=== PATIENT | female | born 1980 | race Caucasian/White ===

== ENCOUNTER 2024-02-18 14:49 | Outpatient (AMB) | payer OTHER, SELFPAY ==
--- NOTE | 2024-02-18 15:16 | A.OFFPC_ITS ---
Vital Signs 02/18/24 15:23 Height 5 ft 6.54 in Weight 157 lb 6 oz BMI 25.0 BP 126/88 Blood Pressure Location Lt brachial Position Sitting Respiration 12 Pulse 91 Pulse Source Pulse Oximeter Temp 98.9 F Temp Source Oral Pulse Oximetry (%) 97 Oxygen Delivery Method Room Air Intake Visit Reasons: NPV issue with blood pressure. Allergies fluoxetine [From Prozac] Allergy (Unknown, Verified 02/18/24 15:21) Hives Tobacco use date assessed: 02/18/24 Dental Screening Dental Screen Date: 02/18/24 Did you have a dental visit in the last 12 months?: Yes Did you have a dental problem in the last 6 months where you did not have access to dental care?: No Was dental information given to patient?: Patient has dentist HPI HPI Comments History of Present Illness Details This is a 43-year-old female with a past medical history of abnormal uterine bleeding, anxiety, diastasis recti, NEHAL 1 and hypertension presenting to transfer from my practice at [facility]. She was started on Inderal LA 60 mg shortly before I left the last practice for physiologic anxiety symptoms and hypertension. Her blood pressure and symptoms improved on the medication. She has occasional lightheadedness with it. During the past month she reports increased anxiety. She attributes this to multiple factors. She has a co-worker at work who is difficult. She has a 5-year-old and an 8-year-old. They are boys. Her 5-year-old is high energy and has tantrums. She knows this is normal, but it is still difficult to deal with at home. Her is also drinking alcohol again, and he struggles with depression. He was in treatment. He was taking medication and seeing a therapist, but he stopped. She says he has a hard time following through with things. She can not always remind him because she gets frustrated, and she has a lot of things to do for her family, and he should be able to have the initiative to do things himself. She knows he has the potential to be a very good partner, but she also knows that she may have to have a more serious conversation with him if things do not change. She knows that she deserves a healthy marriage, and a good partner, and her children deserve a happy father. She is seeing a therapist. She goes every 3 weeks. She took Prozac in the past which caused hives. Her cvir tech is treating her abnormal uterine bleeding. She is currently on medroxyprogesterone 10 mg daily which has been tapered down from a higher dosage. TSH was normal. ROS: Constitutional: No unexplained weight loss, fever, chills or night sweats. Endocrine: No cold or heat intolerance. No polyuria or polydipsia. Psychiatric: No SI/HI. Constitutional: Alert, in no distress. Respiratory: Clear to auscultation. Cardiovascular: S1 S2 regular. No murmurs. Psychiatric: Normal mood and affect [facility] Medical History (Updated 02/18/24 @ 16:20 by LIZZETH Harrell) Vulvodynia Menstrual headache Mass of right foot Hypertension History of pre-eclampsia Heavy menses Headache Hair loss Diastasis recti Anxiety Abnormal uterine bleeding Surgical History (Updated 02/18/24 @ 15:34 by Aide Sorensen CMA) H/O wisdom tooth extraction H/O section Social History Housing: House Patient Tobacco Use Status: Never used Tobacco e-Cigarette/Vaping Use: Never Used Second Hand Smoke Exposure: No service: No Current occupational status: employed 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 1. Little interest or pleasure in doing things: several days 2. Feeling down, depressed, or hopeless: several days 3. Trouble falling or staying asleep, or sleeping too much: several days 4. Feeling tired or having little energy: more than half the days 5. Poor appetite or overeating: not at all 6. Feeling bad about yourself - or that you are a failure or have let yourself or your family down: not at all 7. Trouble concentrating on things, such as reading the newspaper or watching television: not at all 8. Moving or speaking so slowly that other people could have noticed. Or the opposite - being so fidgety or restless that you have been moving around a lot more than usual: not at all 9. Thoughts that you would be better off or of hurting yourself in some way: not at all Total score: 5 Depression Screening Interpretation: Positive Depression Screening Follow-up: In treatment Depression Screening Done: Yes 07365 - PHQ-9 Billing: Yes Source: Developed by Drs. Mainor Ferraro, Ciara Stover, Thomas Morin and colleagues, with an educational ermelinda from [employer]. Thrive Questionnaire Date Thrive assessed: 02/18/24 I am a: Patient What is your living situation today?: I have a steady place to live Within the past 12 months, did the food you bought not last and you didn't have the money to get more?: Never true Within the past 12 months, did you worry whether your food would run out before you got money to buy more?: Never true Do you have trouble paying for medicines?: No Do you have trouble getting transportation to medical appointments?: No Do you have trouble paying your heating and electricity bill?: No Do you have trouble taking care of your child, family member or friend?: No Do you have trouble with day-to-day activities such as bathing, preparing meals, shopping, managing finances, etc.?: No Are you currently unemployed and looking for a job?: No Are you interested in more education?: No Please select the resources that you would like help with: None Currently or been in a relationship where the following occur: No concerns reported THRIVE Score: 0 AUDIT C Alcohol Use Questionnaire (AUDIT-C) 1. How often do you have a drink containing alcohol?: Monthly or less 2. How many drinks containing alcohol do you have on a typical day when you are drinking?: 1 or 2 3. How often do you have six or more drinks on one occasion?: Never Total Score: 1 RICA-7 AMB Questionnaire RICA-7 Date RICA - 7 assessed: 02/18/24 Feeling nervous, anxious, or on edge: 0 = Not at all Not being able to stop or control worryin = Not at all Worrying too much about different things: 0 = Not at all Trouble relaxin = Not at all Being so restless that it is hard to sit still: 0 = Not at all Becoming easily annoyed or irritable: 0 = Not at all Feeling afraid as if something awful might happen: 0 = Not at all Total RICA-7 score (0-4 normal; 5-9 mild; 10-14 moderate; 15-21 severe): 0 Source: Developed by Drs. Mainor Ferraro, Ciara Stover, Thomas Morin and colleagues, with an educational ermelinda from [employer]. RICA-7 Assessment Billing RICA-7 Assessment Tool: RICA-7 Assessment 37882 Physical exam (Primary Care) Vital Signs: Last Vital Signs Temp 98.9 F 02/18/24 15:23 Pulse 91 02/18/24 15:23 Resp 12 02/18/24 15:23 BP 126/88 02/18/24 15:23 Pulse Ox 97 02/18/24 15:23 Oxygen Delivery Method Room Air 02/18/24 15:23 BMI result Body Mass Index 25.0 Tobacco/Smoking Status: Tobacco use Status Tobacco use date assessed 02/18/24 02/18/24 15:28 Patient Tobacco Use Status Never used Tobacco 02/18/24 15:28 e-Cigarette/Vaping Use Never Used 02/18/24 15:28 PHQ-9: PHQ-9 Score PHQ-9: Total score 5 02/18/24 16:03 Depression Screening Interpretation: Positive Depression Screening Follow-up: In treatment Thrive Assessment: Date of Thrive Assessment Date Thrive assessed 02/18/24 02/18/24 15:28 Currently or been in a relationship where the following occur: No concerns reported Assessment and Plan Assessment & Plan (1) Anxiety: Code(s): F41.9 - Anxiety disorder, unspecified Plan: Patient will continue therapy. Prefers daily medication to treat anxiety. She had hives on an SSRI. We will try buspirone 5 mg twice daily. Dose may need to be titrated. Side effects and black box warning reviewed. (2) Hypertension: Code(s): I10 - Essential (primary) hypertension Qualifiers: Hypertension type: primary hypertension Qualified Code(s): I10 - Essential (primary) hypertension Plan: Diastolic blood pressure mildly elevated today. Anxiety and stress likely contributing to this. See below. Continue Inderal ER 60 mg daily for now. Recheck at follow up in a month. Low-sodium diet and avoidance of caffeine recommended. Medications: New buspirone 5 mg PO BID 60 tabs 0RF 30 days Coding Level of Care Code Est Pt Level 4 (28282) Complex EM visit Add On G2211 Diagnoses Anxiety F41.9 Primary hypertension I10 Hypertension type: primary hypertension Additional Codes RICA-7 Assessment Billing - RICA-7 Assessment Tool: RICA-7 Assessment 43908 ([id number])
[2024-02-18 15:23] VITALS: BP 126/88; PULSE 91; RESP 12; TEMP 37.2; O2SAT 97; BMI 25.0
== END 2024-02-18 16:16 | disposition home or self-care (01) ==
PROVIDERS: Visit Provider Physician Assistant Medical
DX: I10 Essential (primary) hypertension (principal); F41.9 Anxiety disorder, unspecified
CPT/HCPCS: 99214

== ENCOUNTER 2024-03-16 15:25 | Outpatient (AMB) | payer OTHER, SELFPAY ==
--- NOTE | 2024-03-16 15:35 | MHC.PC.OV ---
Vital Signs 03/16/24 15:42 03/16/24 16:19 Height 5 ft 8 in Weight 160 lb 2 oz BMI 24.3 BP 110/90 H 114/85 Blood Pressure Location Lt brachial Position Sitting Respiration 16 Pulse 84 Pulse Source Palpation Temp 98.5 F Temp Source Oral Intake Visit Reasons: Med Review Intake Note: b/p recheck Is last menstrual period known: No (per patient she takes medication to stop menstrual) Post menopausal: No Patient : No Allergies fluoxetine [From Prozac] Allergy (Unknown, Verified 03/16/24 15:44) Hives Tobacco use date assessed: 03/16/24 Dental Screening Dental Screen Date: 03/16/24 Did you have a dental visit in the last 12 months?: Yes Did you have a dental problem in the last 6 months where you did not have access to dental care?: No Was dental information given to patient?: Patient has dentist HPI HPI Comments History of Present Illness Details This is a 43-year-old female with a past medical history of abnormal uterine bleeding, anxiety, diastasis recti, NEHAL 1 and hypertension presenting for follow up. She was started on Inderal LA 60 mg shortly before I left the last practice for physiologic anxiety symptoms and hypertension. Her blood pressure and symptoms improved on the medication. She has occasional lightheadedness with it. At her initial visit here she reported increased anxiety: She attributes this to multiple factors. She has a co-worker at work who is difficult. She has a 5-year-old and an 8-year-old. They are boys. Her 5-year-old is high energy and has tantrums. She knows this is normal, but it is still difficult to deal with at home. Her is also drinking alcohol again, and he struggles with depression. He was in treatment. He was taking medication and seeing a therapist, but he stopped. She says he has a hard time following through with things. She can not always remind him because she gets frustrated, and she has a lot of things to do for her family, and he should be able to have the initiative to do things himself. She knows he has the potential to be a very good partner, but she also knows that she may have to have a more serious conversation with him if things do not change. She knows that she deserves a healthy marriage, and a good partner, and her children deserve a happy father. She is seeing a therapist. She goes every 3 weeks. She took Prozac in the past which caused hives. Patient started buspirone 5 mg twice daily. It is helping a little, and she does not have side effects. She is interested in increasing the dose. Since her last visit her started seeing a therapist. She is happy about this, but she is frustrated she has not seen improvement yet although she knows it is too early. Her diastolic blood pressure is mildly elevated today, but she is emotionally charged. Her son has been sick for a week. He has been at the doctor and urgent care. Her dog also has a medical issue, and the vet bill was 1200 dollars. ROS: Constitutional: No unexplained weight loss, fever, chills or night sweats. Endocrine: No cold or heat intolerance. No polyuria or polydipsia. Psychiatric: No SI/HI. Constitutional: Alert, in no distress. 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 Mainor Ferraro, Ciara Stover, Thomas Morin and colleagues, with an educational ermelinda from [employer]. Physical exam (Primary Care) BMI result Body Mass Index 24.3 Tobacco/Smoking Status: Tobacco use Status Tobacco use date assessed 02/18/24 03/16/24 15:41 Patient Tobacco Use Status Never used Tobacco 03/16/24 15:41 e-Cigarette/Vaping Use Never Used 03/16/24 15:41 Thrive Assessment: Date of Thrive Assessment Date Thrive assessed 02/18/24 03/16/24 15:41 Assessment and Plan Assessment & Plan (1) Anxiety: Code(s): F41.9 - Anxiety disorder, unspecified Plan: Patient will continue therapy. Increase buspirone to 7.5 mg twice daily. Dose may need to be titrated further. Side effects and black box warning reviewed. (2) Hypertension: Code(s): I10 - Essential (primary) hypertension Qualifiers: Hypertension type: primary hypertension Qualified Code(s): I10 - Essential (primary) hypertension Plan: Diastolic blood pressure mildly elevated today. Anxiety and stress likely contributing to this. Continue Inderal ER 60 mg daily for now. I provided her with a prescription for a blood pressure cuff. Low-sodium diet and avoidance of caffeine recommended. Plan Follow up in 4-6 weeks for medication check. Medications: New miscellaneous medical supply (Blood Pressure Cuff) As directed 1 ea 0RF buspirone 7.5 mg PO BID 60 tabs 1RF miscellaneous medical supply (Blood Pressure Cuff) As directed 1 ea 0RF Discontinued buspirone Discontinued Reason: Doctor's Order 5 mg PO BID 30 days 60 tabs 0RF Coding Level of Care Code Est Pt Level 4 (48252) Complex EM visit Add On G2211 Diagnoses Anxiety F41.9 Primary hypertension I10 Hypertension type: primary hypertension
[2024-03-16 15:42] VITALS: BP 110/90; PULSE 84; RESP 16; TEMP 36.9; BMI 24.3
[2024-03-16 16:19] VITALS: BP 114/85
== END 2024-03-16 16:29 | disposition home or self-care (01) ==
PROVIDERS: PCP Physician Assistant Medical; Visit Provider Physician Assistant Medical
DX: I10 Essential (primary) hypertension (principal); F41.9 Anxiety disorder, unspecified
CPT/HCPCS: 99214

== ENCOUNTER 2024-04-30 10:03 | Outpatient (AMB) | payer OTHER, SELFPAY ==
--- NOTE | 2024-04-30 09:58 | MHC.PC.OV ---
Intake Visit Reasons: anxiety check, -[phone] Intake Note: Patient is checking in regarding anxiety and expresses concern for her medication that she would like to discuss with her provider. 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 She shared further updates today. Her was hospitalized for 2 days for acute alcohol withdrawal. Patient says that his eyes are yellow. He has lost weight. He has told her that he can never have a drink again, but she has difficulty trusting this because of his previous lies. She is still seeing her therapist. She continues to tell me that she knows she deserves a healthy marriage, a good partner and for her children to have a happy father. She is having some difficulty sleeping due to racing thoughts at night. She took Prozac in the past which caused hives. She is currently on buspirone 7.5 mg twice daily, and she is interested in a dose increase. She is not interested in any controlled substances like Ativan as needed at this time. The only side effect on buspirone is occasional lightheadedness after she takes it. Her 5-year-old started kindergarten. He is doing okay with this. Sadly, her dog also a few weeks ago. ROS: Constitutional: No unexplained weight loss, fever, chills or night sweats. Psychiatric: No SI/HI. 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 Mainor Ferraro, Ciara Stover, Thomas Morin and colleagues, with an educational ermelinda from [employer]. Physical exam (Primary Care) Tobacco/Smoking Status: Tobacco use Status Tobacco use date assessed 03/16/24 04/30/24 10:01 Patient Tobacco Use Status Never used Tobacco 04/30/24 10:01 e-Cigarette/Vaping Use Never Used 04/30/24 10:01 Thrive Assessment: Date of Thrive Assessment Date Thrive assessed 02/18/24 04/30/24 10:01 Telehealth Telehealth Telehealth Platform: Telephone Location of provider rendering services: practice address Location of patient: other (Patient's work address) Patient Identification confirmed using: Name, : Yes Telehealth method: voice only Patient verbally consented to treatment: Yes Patient verbally consented to billing insurance company: Yes Patient informed of any privacy concerns related to visit: Yes Minutes spent on Phone/Video with Pt.: 13 Assessment and Plan Assessment & Plan (1) Anxiety: Code(s): F41.9 - Anxiety disorder, unspecified Plan: Support provided to the patient. Patient will continue therapy. Increase buspirone to 10 mg twice daily. Dose may need to be titrated further. Side effects and black box warning reviewed. Plan Follow up in 4-6 weeks for medication check. Medications: New buspirone 10 mg PO BID 90 days 180 tabs 1RF Discontinued buspirone Discontinued Reason: Doctor's Order 7.5 mg PO BID 60 tabs 1RF Coding Level of Care Code Tele Est Pt Level 3 (06540) Diagnoses Anxiety F41.9
== END 2024-04-30 12:06 | disposition home or self-care (01) ==
LOC: HO.HMGFM 10:03
PROVIDERS: PCP Physician Assistant Medical; Visit Provider Physician Assistant Medical
DX: F41.9 Anxiety disorder, unspecified (principal)
CPT/HCPCS: 99213

== ENCOUNTER 2024-05-08 07:47 | Outpatient (REF) | payer OTHER, SELFPAY ==
[2024-05-08 09:45] LABS: Hematocrit 38.1 % (37.0-47.0); Hemoglobin 12.3 g/dl (12.0-16.0); Mean Corpuscular HGB Conc 32.3 g/dl (31.0-35.0); Mean Corpuscular Hemoglobin 26.7 pg (27.0-33.0); Mean Corpuscular Volume 82.8 fL (80.0-98.0); Mean Platelet Volume 9.9 fL (9.4-12.3); Platelet Count 291 X10*3/uL (160-400); White Blood Count 6.1 X10*3/uL (4.8-10.8)
[2024-05-08 10:19] LABS: Alanine Aminotransferase 24 U/L (0-31); Albumin Level 4.4 g/dL (3.5-5.0); Alkaline Phosphatase 78 U/L (39-117); Anion Gap 9 (12-20); Aspartate Amino Transferase 22 U/L (5-31); Bilirubin Total 0.5 mg/dL (0.0-1.0); Blood Urea Nitrogen 16 mg/dL (9-16); Calcium 9.7 mg/dL (8.4-10.2); Carbon Dioxide 28 mmol/L (22-29); Chloride 107 mmol/L (96-108); Estimated Glomerular Filt Rate > 60; Glucose Random 89 mg/dL (60-115); Potassium 3.9 mmol/L (3.3-5.1); Sodium 140 mmol/L (135-145); Total Protein 8.1 g/dL (6.5-8.0)
[2024-05-08 10:22] LABS: Erythrocyte Sedimentation Rate 11 MM/HR (0-20)
[2024-05-08 10:42] LABS: TSH reflex Free T4 2.58 uIU/mL (0.32-4.0)
[2024-05-08 10:56] LABS: Folate 13.6 ng/mL (> or = 4.0); Vitamin B12 441 pg/mL (200-900)
[2024-05-12 02:24] LABS: Zinc 91 mcg/dL (60-130)
[2024-05-12 16:59] LABS: VITAMIN D (1,25 OH) D3 48 pg/mL; Vit D (1,25-Dihydroxy) Total 48 pg/mL (18-72); Vitamin D (1,25 OH) D2 <8 pg/mL
[2024-05-13 14:23] LABS: Vitamin B6 28.8 ng/mL (2.1-21.7)
[2024-05-17 15:09] LABS: Vitamin B2 (Riboflavin) 13.5 nmol/L (6.2-39.0)
== END 2024-05-08 07:48 | disposition home or self-care (01) ==
LOC: HO.LAB 07:47
PROVIDERS: Visit Provider Physician Assistant Medical
DX: L65.9 Nonscarring hair loss, unspecified (principal)
CPT/HCPCS: 36415; 80053; 82607; 82652; 82746; 84207; 84252; 84443; 84591; 84630; 85027; 85652

== ENCOUNTER 2024-08-31 15:06 | Outpatient (AMB) | payer OTHER, SELFPAY ==
--- NOTE | 2024-08-31 15:09 | MHC.PC.OV ---
Vital Signs 08/31/24 15:12 Height 5 ft 8 in Weight 163 lb BMI 24.8 BP 118/76 Blood Pressure Location Rt brachial Position Sitting Pulse 84 Pulse Source Pulse Oximeter Oxygen Delivery Method Room Air Intake Visit Reasons: Med Review Intake Note: Medication follow up Community Support Associate Required: No Allergies fluoxetine [From Prozac] Allergy (Unknown, Verified 08/31/24 15:09) Hives Tobacco use date assessed: 08/31/24 Dental Screening Dental Screen Date: 03/16/24 HPI HPI Comments History of Present Illness Details This is a 43-year-old female with a past medical history of abnormal uterine bleeding, anxiety, diastasis recti, NEHAL 1, hypertension presenting for follow up. She stopped buspirone. She did not feel like it was helping. Her is in an outpatient recovery program for alcohol abuse. Her younger son who is 5 years old continues to struggle at home and school. She is speaking with a behavioral clinician at the electric arc furnace operator's office, and her son we will see them soon. She tried Prozac in the past which caused hives. She is not interested in taking any controlled substances for anxiety. The patient is seeing a therapist. She saw Dermatology for hair loss which is felt to be stress related. They started her on minoxidil. She has no side effects thus far. She recently notices less fall out. Hypertension is controlled on propranolol which was also started to help with anxiety. Patient saw Gynecology recently. They told her she may have an infection based on a swab and ultimately ended up putting her on a course of antibiotics. Now patient feels she has a yeast infection including symptoms of vaginal itching and some whitish discharge. ROS: Constitutional: No unexplained weight loss, fever, chills Respiratory: No shortness of breath Cardiovascular: No chest pain Gastrointestinal: No anorexia, nausea, vomiting or diarrhea. No abdominal pain Genitourinary: No dysuria, hematuria, urinary frequency. No pelvic pain. Psychiatric:No SI/HI. Physical exam: Constitutional: Alert, in no distress. Neck: Supple, Full range of motion. No lymphadenopathy. No palpable thyroid masses. Respiratory: Clear to auscultation. Cardiovascular: S1 S2 regular. No murmurs. Skin: Patient has a little bit of red irritation and cracking skin on the back of the knuckles on her right hand. It is not itchy, and she is going to try applying Vaseline or Aquaphor to it. Extremities: Warm and well perfused. No clubbing, cyanosis or edema. 3+ radial pulses. Psychiatric: Normal mood and affect [facility] Medical History (Updated 06/08/24 @ 13:46 by LIZZETH Harrell) Vulvodynia Menstrual headache Mass of right foot Hypertension History of pre-eclampsia Heavy menses Headache Hair loss Diastasis recti Anxiety Abnormal uterine bleeding Surgical History H/O wisdom tooth extraction H/O section Social History (Updated 08/31/24 @ 15:12 by Aide Sorensen CMA) Housing: House Alcohol intake: current Patient Tobacco Use Status: Never used Tobacco e-Cigarette/Vaping Use: Never Used Second Hand Smoke Exposure: No service: No Current occupational status: employed 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 1. Little interest or pleasure in doing things: not at all 2. Feeling down, depressed, or hopeless: not at all 3. Trouble falling or staying asleep, or sleeping too much: not at all 4. Feeling tired or having little energy: several days 5. Poor appetite or overeating: not at all 6. Feeling bad about yourself - or that you are a failure or have let yourself or your family down: several days 7. Trouble concentrating on things, such as reading the newspaper or watching television: not at all 8. Moving or speaking so slowly that other people could have noticed. Or the opposite - being so fidgety or restless that you have been moving around a lot more than usual: not at all 9. Thoughts that you would be better off or of hurting yourself in some way: not at all Total score: 2 Depression Screening Interpretation: Negative Depression Screening Done: Yes Source: Developed by Drs. Mainor Ferraro, Ciara Stover, Thomas Morin and colleagues, with an educational ermelinda from [employer]. Thrive Questionnaire Date Thrive assessed: 08/29/24 I am a: Patient What is your living situation today?: I have a steady place to live Within the past 12 months, did the food you bought not last and you didn't have the money to get more?: Never true Within the past 12 months, did you worry whether your food would run out before you got money to buy more?: Never true Do you have trouble paying for medicines?: No Do you have trouble getting transportation to medical appointments?: No Do you have trouble paying your heating and electricity bill?: No Do you have trouble taking care of your child, family member or friend?: No Do you have trouble with day-to-day activities such as bathing, preparing meals, shopping, managing finances, etc.?: No Are you currently unemployed and looking for a job?: No Are you interested in more education?: No Please select the resources that you would like help with: None Currently or been in a relationship where the following occur: No concerns reported THRIVE Score: 0 AUDIT C Alcohol Use Questionnaire (AUDIT-C) 1. How often do you have a drink containing alcohol?: Monthly or less 2. How many drinks containing alcohol do you have on a typical day when you are drinking?: 1 or 2 3. How often do you have six or more drinks on one occasion?: Never Total Score: 1 RICA-7 AMB Questionnaire RICA-7 Date RICA - 7 assessed: 02/18/24 Feeling nervous, anxious, or on edge: 3 = Nearly every day Not being able to stop or control worryin = Several days Worrying too much about different things: 1 = Several days Trouble relaxin = Several days Being so restless that it is hard to sit still: 0 = Not at all Becoming easily annoyed or irritable: 2 = More than half the days Feeling afraid as if something awful might happen: 0 = Not at all Total RICA-7 score (0-4 normal; 5-9 mild; 10-14 moderate; 15-21 severe): 8 Source: Developed by Drs. Mainor Ferraro, Ciara Stover, Thomas Morin and colleagues, with an educational ermelinda from [employer]. Physical exam (Primary Care) Vital Signs: Last Vital Signs Pulse 84 08/31/24 15:12 BP 118/76 08/31/24 15:12 Oxygen Delivery Method Room Air 08/31/24 15:12 BMI result Body Mass Index 24.8 Tobacco/Smoking Status: Tobacco use Status Tobacco use date assessed 08/31/24 08/31/24 15:14 Patient Tobacco Use Status Never used Tobacco 08/31/24 15:14 e-Cigarette/Vaping Use Never Used 08/31/24 15:14 PHQ-9: PHQ-9 Score PHQ-9: Total score 2 08/31/24 15:29 Depression Screening Interpretation: Negative Thrive Assessment: Date of Thrive Assessment Date Thrive assessed 08/29/24 08/31/24 15:14 Currently or been in a relationship where the following occur: No concerns reported Coding Level of Care Code Est Pt Level 4 (63257) Complex EM visit Add On G2211 Diagnoses Anxiety F41.9 Primary hypertension I10 Hypertension type: primary hypertension Hair loss L65.9 Vaginitis N76.0 Assessment & Plan Assessment & Plan (1) Anxiety: Code(s): F41.9 - Anxiety disorder, unspecified Category: Medical Plan: Continue therapy. She is on the fence about whether or not she wants to try additional modification, and we discussed referral to Psychiatry for further evaluation and medication recommendations. She is agreeable to referral. (2) Hypertension: Code(s): I10 - Essential (primary) hypertension Category: Medical Qualifiers: Hypertension type: primary hypertension Qualified Code(s): I10 - Essential (primary) hypertension Plan: Stable. Continue propranolol. (3) Hair loss: Code(s): L65.9 - Nonscarring hair loss, unspecified Category: Medical Plan: Seen by dermatology and patient is taking minoxidil. (4) Vaginitis: Code(s): N76.0 - Acute vaginitis Plan: Treat with Diflucan. Patient will contact Gynecology if symptoms do not resolve. Plan Schedule physical exam. Orders: Orders Lipid Panel Today E78.5 - Hyperlipidemia, unspecified Referrals Psychiatry Outpatient Consultation Service F41.9 - Anxiety disorder, unspecified Medications: New fluconazole 150 mg PO Q3D 2 tabs 0RF 2 doses
[2024-08-31 15:12] VITALS: BP 118/76; PULSE 84; BMI 24.8
--- OUTSIDE RECORDS SUMMARY | 2024-08-31 19:04 | XMS_ITS | Continuity of Care Document ---
[facility] Organization [facility] Address [address] [place] [address], [address] [place] [address]- Care Team Providers Care Bander And Cellophaner Machine Name Role Phone Carlie Pa Primary Care Physician [phone] [place] [facility] [place] - 08/29/[facility] [address] [place] [address], [address] [place], [place] [address] Encounter Type: Triage Allergies, Adverse Reactions, Alerts Substance Criticality Severity Reaction Reaction Severity Status PROzac 1 Active 1Patient tolerates TABLET. Capsules caused itching and redness on legs. Immunizations Given and Recorded Vaccine Date Status Refusal Reason [id number] 12y+ bivalent booster vax 08/02/22 Recorded SARS-CoV-2 (COVID-19) mRNA BNT-162b2 vac 01/03/21 Given SARS-CoV-2 (COVID-19) mRNA BNT-162b2 vac 12/13/20 Given tetanus/diphtheria/pertussis, acel(Tdap) 1 01/26/19 Given tetanus/diphtheria/pertussis, acel(Tdap) 09/12/15 Given tetanus/diphtheria/pertussis, acel(Tdap) 01/30/11 Recorded Human Papillomavirus Vaccine 01/13/08 Recorded Human Papillomavirus Vaccine 10/21/07 Recorded Human Papillomavirus Vaccine 08/27/07 Recorded tetanus-diphtheria toxoids (Td) 07/09/05 Recorded hepatitis B pediatric vaccine 09/12/04 Recorded hepatitis B pediatric vaccine 06/05/04 Recorded hepatitis B pediatric vaccine 05/01/04 Recorded Measles/Mumps/Rubella Virus Vaccine 12/19/85 Recor ded Measles/Mumps/Rubella Virus Vaccine 09/08/82 Recor ded 1Early/Late Reason: Other : late charting Medications Inderal LA 60 mg oral capsule, extended release 60 mg, 1, capsule, By Mouth, Daily, # 90 capsule, Refills 1, Tot. Refills 1, Maintenance, 12/19/23 3:28:00 PM EDT, Route to Pharmacy Electronically, [id number], Partial fill upon patient request if the prescription is for a schedule II opioid drug., 174, cm, 12/19/23 15:10:00 EDT, Height Start Date: 12/19/23 Stop Date: 06/16/24 Status: Ordered Quantity: 90.0 Unit: capsule Repeat number: 2 lisinopril 10 mg oral tablet 10 mg, 1, tablet, By Mouth, Daily, # 30 tablet, Refills 0, Maintenance, 07/06/24 8:41:00 AM EST, Partial fill upon patient request if the prescription is for a schedule II opioid drug. Start Date: 07/06/24 Status: Ordered Quantity: 30.0 Unit: tablet Repeat number: 1 medroxyPROGESTERone 10 mg oral tablet 10 mg, 1, tablet, By Mouth, Daily, # 30 tablet, Refills 11, Tot. Refills 11, Maintenance, 07/06/24 8:52:00 AM EST, Route to Pharmacy Electronically, [id number], Partial fill upon patient request if the prescription is for a schedule II opioid drug., 174, cm, 01/14/24 11:26:00 EDT, Height Start Date: 07/06/24 Status: Ordered Quantity: 30.0 Unit: tablet Repeat number: 12 propranolol 60 mg oral capsule, extended release 30 each, 0 Refill(s), TAKE ONE CAPSULE BY MOUTH EVERY DAY, Refills 0, 07/06/24 8:18:00 AM EST, Partial fill upon patient request if the prescription is for a schedule II opioid drug. Start Date: 07/06/24 Status: Ordered Repeat number: 1 Problem List Condition Confirmation Course Effective Dates Status H ealth Status Informant Abnormal uterine bleeding Confirmed Active Anxiety Confirmed Active History of NEHAL I (cervical intraepithelial neoplasia I), colposcopies 2011 and 2012, last pap 10/14/17 negative with negative HPV Confirmed Active Diastasis recti Confirmed Active Headache Confirmed Active History of preeclampsia Confirmed Active Hypertension Confirmed Active Hair loss Confirmed Active Mass of right foot Confirmed Active Heavy menses Confirmed Active Menstrual headache Confirmed Active Tumor of right heel Confirmed Active Umbilical hernia Confirmed Active Vulvodynia Confirmed Active Social History Social History Type Response Smoking Status Never smoker entered on: 05/16/15 Sex Sex Representation Female (finding) Patient Care team information Care Team Personnel Name: Carlie Pa Position: Reference Physician Member Role: PCP Address: [address] [place] [address] Family [place], [place] [address] Telecom: Care Team Related Persons Name: LORI HERNANDEZ Name: LATOYA HERNANDEZ Insurance Providers Guarantor name: DONNY HERNANDEZ Health Plan Information #: 1 Payer: NICOLE GONZALEZ HMO Member Number: NA Policy Number: NA Group Number: NA
--- OUTSIDE RECORDS SUMMARY | 2024-08-31 19:04 | XMS_ITS | Continuity of Care Document ---
Author Organization [facility] Address [address] [place] [address], [address] [place] [address]- Care Team Providers Care Master Of Ceremonies Name Role Phone Carlie Pa Primary Care Physician Encounter [facility] [place] Date(s): 07/30/24 - [facility] [address] [place] [address], [address] [place], [place] [address] Encounter Type: Triage Allergies, Adverse Reactions, Alerts Substance Criticality Severity Reaction Reaction Severity Status PROzac 1 Active 1Patient tolerates TABLET. Capsules caused itching and redness on legs. Immunizations Given and Recorded Vaccine Date Status Refusal Reason [id number] 12y+ bivalent booster vax 08/02/22 Recorded SARS-CoV-2 [...] EST, Route to Pharmacy Electronically, [id number], Partial fill upon patient request [...] Position: Reference Physician Member Role: PCP Address: [address] [place] [address] Family [place], [place] [address] Telecom: Care Team Related Persons Name: LORI HERNANDEZ Name: LATOYA HERNANDEZ Insurance Providers Guarantor name: DONNY HERNANDEZ Health Plan Information #: 1 Payer: NICOLE GONZALEZ HMO Member Number: NA Policy Number: NA Group Number: NA
--- OUTSIDE RECORDS SUMMARY | 2024-08-31 19:04 | XMS_ITS | Continuity of Care Document ---
Author Organization [facility] Address [address] [place] [address], [address] [place] [address]- Care Team Providers Care Construction Project Manager Name Role Phone Carlie Pa Primary Care Physician [phone] Encounter [facility] [place] Date(s): 07/13/24 - 08/12/24 [facility] [address] [place] [address], [address] [place], [place] [address] Encounter Type: Triage Allergies, Adverse Reactions, Alerts Substance Criticality Severity Reaction Reaction Severity Status PROzac 1 Active 1Patient tolerates TABLET. Capsules caused itching and redness on legs. Immunizations Given and Recorded Vaccine Date Status Refusal Reason [id number] 12y+ bivalent booster vax 08/02/22 Recorded SARS-CoV-2 [...] EST, Route to Pharmacy Electronically, [id number], Partial fill upon patient request [...] Position: Reference Physician Member Role: PCP Address: [address] [place] [address] Family Medicine [place], [place] [address] Telecom: Care Team Related Persons Name: LORI HERNANDEZ Name: LATOYA HERNANDEZ Insurance Providers Guarantor name: DONNY HERNANDEZ Health Plan Information #: 1 Payer: NICOLE GONZALEZ HMO Member Number: NA Policy Number: NA Group Number: NA
--- OUTSIDE RECORDS SUMMARY | 2024-08-31 19:04 | XMS_ITS | Continuity of Care Document ---
Author Organization [facility] Address [address] [place] [address], [address] [place] [address]- Care Team Providers Care Pizza Hut Assistant Name Role Phone Carlie Pa Primary Care Physician [phone] [place] [facility] [place] 07/06[place]24 - 08/05/[facility] [address] [place] [address], [address] [place] [address] [address] Attending Physician: Admtr, Ar8 Admitting Physician: Admtr, Ar8 Referring Physician: Admtr, Ar8 Encounter Type: Triage Allergies, Adverse Reactions, Alerts Substance Criticality Severity Reaction Reaction Severity Status PROzac 1 Active 1Patient tolerates TABLET. Capsules caused itching and redness on legs. Immunizations Given and Recorded Vaccine Date Status Refusal Reason [id number] 12y+ bivalent booster vax 08/02/22 Recorded SARS-CoV-2 [...] Quantity: 30.0 Unit: tablet Repeat number: 12 metroNIDAZOLE 500 mg oral tablet 1 tablet = 500 mg, By Mouth, Every 12 hours, for 7 days, # 14 tablet, 0 Refills, Acute 08/06/24 1:54:00 PM EST, 07/30/24 1:54:00 PM EST, Tablet, [id number], Partial fill upon patient request if the prescription is for a schedule II opioid drug., 174, cm, 01/14/24 11:26:00 EDT, Height Start Date: 07/30/24 Stop Date: 08/06/24 Status: Ordered Quantity: 14.0 Unit: tablet Repeat number: 1 propranolol 60 mg oral capsule, extended release [...] Position: Reference Physician Member Role: PCP Address: [address] [place] [address] [place] [address]- Telecom: Care Team Related Persons Name: LORI HERNANDEZ Name: LATOYA HERNANDEZ Insurance Providers Guarantor name: DONNY HERNANDEZ Health Plan Information #: 1 Payer: NICOLE [employer] HMO Member Number: NA Policy Number: NA Group Number: NA
--- OUTSIDE RECORDS SUMMARY | 2024-08-31 19:04 | XMS_ITS | Continuity of Care Document ---
Author Organization [facility] Address [address] [place] [address], [address] [place] [address]- Care Team Providers Care Tester Wafer Substrate Name Role Phone Carlie Pa Primary Care Physician [phone] Encounter [facility] [place] Date(s): 07/30/24 - 08/29/[facility] [address] [place] [address], [address] [place], [place] [address] Encounter Type: Triage Allergies, Adverse Reactions, Alerts Substance Criticality Severity Reaction Reaction Severity Status PROzac 1 Active 1Patient tolerates TABLET. Capsules caused itching and redness on legs. Immunizations Given and Recorded Vaccine Date Status Refusal Reason [id number] 12y+ bivalent booster vax 08/02/22 Recorded SARS-CoV-2 [...] EST, Route to Pharmacy Electronically, [id number], Partial fill upon patient request [...] Position: Reference Physician Member Role: PCP Address: [address] [place] [address] Family Medicine [place], [place] [address] Telecom: Care Team Related Persons Name: LORI HERNANDEZ Name: LATOYA HERNANDEZ Insurance Providers Guarantor name: DONNY HERNANDEZ Health Plan Information #: 1 Payer: NICOLE GONZALEZ HMO Member Number: NA Policy Number: NA Group Number: NA
--- OUTSIDE RECORDS SUMMARY | 2024-08-31 19:04 | XMS_ITS | Continuity of Care Document ---
Author Organization [facility] Address [address] [place] [address], [address] [place] [address]- Care Team Providers Care Chucking And Boring Machine Operator Name Role Phone Carlie Pa Primary Care Physician Encounter [facility] [place] Date(s): 07/30/24 - [facility] [address] [place] [address], [address] [place], [place] [address] Encounter Type: Triage Allergies, Adverse Reactions, Alerts Substance Criticality Severity Reaction Reaction Severity Status PROzac 1 Active 1Patient tolerates TABLET. Capsules caused itching and redness on legs. Immunizations Given and Recorded Vaccine Date Status Refusal Reason [id number] 12y+ bivalent booster vax 08/02/22 Recorded SARS-CoV-2 [...] EST, Route to Pharmacy Electronically, [id number], Partial fill upon patient request [...] Position: Reference Physician Member Role: PCP Address: [address] [place] [address] Family [place], [place] [address] Telecom: Care Team Related Persons Name: LORI HERNANDEZ Name: LATOYA HERNANDEZ Insurance Providers Guarantor name: DONNY HERNANDEZ Health Plan Information #: 1 Payer: NICOLE GONZALEZ HMO Member Number: NA Policy Number: NA Group Number: NA
== END 2024-08-31 16:03 | disposition home or self-care (01) ==
PROVIDERS: PCP Physician Assistant Medical; Visit Provider Physician Assistant Medical
DX: F41.9 Anxiety disorder, unspecified (principal); I10 Essential (primary) hypertension; L65.9 Nonscarring hair loss, unspecified; N76.0 Acute vaginitis

== ENCOUNTER → 2024-08-31 15:06 | Outpatient (BNVA) | payer OTHER, SELFPAY | PROVIDERS: PCP Physician Assistant Medical; Visit Provider Physician Assistant Medical ==

== ENCOUNTER 2024-10-15 14:47 | Outpatient (AMB) | payer OTHER, SELFPAY ==
--- NOTE | 2024-10-15 14:56 | MHC.PC.OV ---
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: No Allergies fluoxetine [From Prozac] Allergy (Unknown, Verified 10/15/24 14:57) Hives Tobacco use date assessed: 10/15/24 Dental Screening Dental Screen Date: 10/15/24 Did you have a dental visit in the last 12 months?: Yes Did you have a dental problem in the last 6 months where you did not have access to dental care?: No Was dental information given to patient?: Patient has dentist HPI HPI Comments History of Present Illness Details This is a 43-year-old female with a past medical history of abnormal uterine bleeding, anxiety, diastasis recti, NEHAL 1, hypertension presenting for a physical exam. She has a growth on the medial aspect of her right foot which has enlarged slowly over time. It causes pain sometimes now when walking. She had this evaluated many years ago, and she was referred to Podiatry, but she did not go to the appointment. She believes she may have gotten . She recalls having imaging studies of her foot. She recalls being told it was not cancerous. She has had it for about 9 years. She would like to see Podiatry now. Anxiety is doing better. Her is an outpatient recovery program for alcohol abuse. Her son is doing better. He is having less tantrums and outbursts. He is working with a clinical psychologist. The patient is seeing a therapist as well. She is not interested in taking controlled substances for anxiety. She stopped buspirone because she did not feel like it was helping. She tried Prozac in the past which caused hives. I referred her to Psychiatry, but right now she does not feel like she needs the visit. The referral is still active. She saw Dermatology for hair loss which is felt to be stress related. They started her on minoxidil. She has no side effects thus far. She notices less fall out, and she has baby hairs growing. She has a follow up scheduled within the month. Hypertension is controlled on propranolol which was also started to help with anxiety. She is up-to-date with her annual gynecological exam. Mammogram is Saturday. Dental is UTD. She will schedule an eye exam. No family history of colon cancer or polyposis-colonoscopy recommended age 45. ROS: Constitutional: No unexplained weight loss, fever, chills, fatigue or night sweats. Eyes: No vision changes, blurry vision, double vision, eye pain, eye redness, eye discharge. ENT: No hearing loss, sneezing, congestion, runny nose or sore throat. Respiratory: No shortness of breath, cough or sputum production. Cardiovascular: No chest pain, chest pressure or chest discomfort. No palpitations or pedal edema. Gastrointestinal: No anorexia, nausea, vomiting or diarrhea. No abdominal pain or blood in stool. Genitourinary: No dysuria, hematuria, urinary frequency. Neurologic: No headache, dizziness, syncope, unilateral weakness, ataxia, numbness or tingling in the extremities. Musculoskeletal: see HPI Hematologic/Lymphatics: No bleeding or bruising. No painful lymph nodes. Skin: No rash or itching. Endocrine: No cold or heat intolerance. No polyuria or polydipsia. Psychiatric: No depression.. No SI/HI. Physical exam: Constitutional: Alert, in no distress. Head: Normocephalic. Eyes: Pupils are equal, round and reactive to light. Extraocular muscles intact. Ear, Nose and Throat: Canals clear. TMs normal. Normal nasal mucosa. No nasal discharge. No oral lesions. Neck: Supple, Full range of motion. No lymphadenopathy. No palpable thyroid masses. Respiratory: Clear to auscultation. Cardiovascular: S1 S2 regular. No murmurs. Gastrointestinal: Abdomen soft, non-tender, non-distended. Normal bowel sounds. No palpable masses. Neurologic: No focal neurological deficits. Symmetric patellar reflexes. Moves all extremities spontaneously. Sensation intact bilaterally. Skin: No rashes or lesions. Musculoskeletal: No gross deformities. Normal range of motion. Extremities: Warm and well perfused. No clubbing, cyanosis or edema. 3+ peripheral pulses bilaterally. There is a lumpy, soft, nontender large growth on the medial aspect of the right foot that extends from the back of the foot to the starting point of the arch. Psychiatric: Normal mood and affect [facility] Medical History (Updated 10/15/24 @ 17:02 by LIZZETH Harrell) Routine physical examination Screening for cardiovascular condition Right foot pain Vulvodynia Menstrual headache Mass of right foot Hypertension History of pre-eclampsia Heavy menses Headache Hair loss Diastasis recti Anxiety Abnormal uterine bleeding Surgical History H/O wisdom tooth extraction H/O section Social History (Updated 08/31/24 @ 15:12 by Aide Sorensen CMA) Housing: House Alcohol intake: current Patient Tobacco Use Status: Never used Tobacco e-Cigarette/Vaping Use: Never Used Second Hand Smoke Exposure: No service: No Current occupational status: employed 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 99232 - PHQ-9 Billing: Patient declined-do not bill Source: Developed by Drs. Mainor Ferraro, Ciara Stover, Thomas Morin and colleagues, with an educational ermelinda from [employer]. Thrive Questionnaire Date Thrive assessed: 10/15/24 I am a: Patient What is your living situation today?: I have a steady place to live Within the past 12 months, did the food you bought not last and you didn't have the money to get more?: Never true Within the past 12 months, did you worry whether your food would run out before you got money to buy more?: Never true Do you have trouble paying for medicines?: No Do you have trouble getting transportation to medical appointments?: No Do you have trouble paying your heating and electricity bill?: No Do you have trouble taking care of your child, family member or friend?: No Do you have trouble with day-to-day activities such as bathing, preparing meals, shopping, managing finances, etc.?: No Are you currently unemployed and looking for a job?: No Are you interested in more education?: No Please select the resources that you would like help with: None Currently or been in a relationship where the following occur: No concerns reported THRIVE Score: 0 RICA-7 AMB Questionnaire RICA-7 Date RICA - 7 assessed: 10/15/24 Source: Developed by Drs. Mainor Ferraro, Ciara Stover, Thomas Morin and colleagues, with an educational ermelinda from [employer]. Physical exam (Primary Care) Vital Signs: Last Vital Signs Temp 97.3 F 10/15/24 14:59 Pulse 76 10/15/24 14:59 Resp 13 10/15/24 14:59 BP 124/70 10/15/24 14:59 Pulse Ox 100 10/15/24 14:59 Oxygen Delivery Method Room Air 10/15/24 14:59 BMI result Body Mass Index 25.1 Tobacco/Smoking Status: Tobacco use Status Tobacco use date assessed 10/15/24 10/15/24 15:01 Patient Tobacco Use Status Never used Tobacco 10/15/24 15:01 e-Cigarette/Vaping Use Never Used 10/15/24 15:01 Thrive Assessment: Date of Thrive Assessment Date Thrive assessed 10/15/24 10/15/24 15:01 Currently or been in a relationship where the following occur: No concerns reported Coding Level of Care Code Est Pt Prev Care 40-64y(11420) Diagnoses Right foot pain M79.671 Routine physical examination Z00.00 Assessment & Plan Assessment & Plan (1) Right foot pain: Code(s): M79.671 - Pain in right foot Category: Medical Plan: Patient declined imaging. She would like to see Podiatry 1st. Refer to podiatry. (2) Routine physical examination: Code(s): Z00.00 - Encounter for general adult medical examination without abnormal findings Category: Medical Plan: Patient is seen today for a routine physical. As part of this visit we reviewed the following issues, which are considered and essential part of preventative health in this age group: - Breast Cancer screening - Annual Feeder Catcher Tobacco exam - Screening for colon cancer - Blood pressure screening - Cholesterol screening - Osteoporosis prevention including calcium/vitamin D intake, weight bearing exercise & smoking cessation - Nutritional and exercise counseling - Counseling of injury prevention including fire prevention, smoke alarms and seat belt usage - Screening for depression - Prevention of and/or testing for infectious diseases - Education about skin cancer - Recommendations about immunizations - Recommendation of an eye exam - Screening for substance abuse Plan Follow up in 6 months for a medication review. Orders: Orders Lipid Panel Today Z13.6 - Encounter for screening for cardiovascular disorders Referrals Podiatry Referral M79.671 - Pain in right foot Medications: Discontinued buspirone Discontinued Reason: Doctor's Order 10 mg PO BID 90 days 180 tabs 1RF fluconazole Discontinued Reason: Doctor's Order 150 mg PO Q3D 2 tabs 0RF
[2024-10-15 14:59] VITALS: BP 124/70; PULSE 76; RESP 13; TEMP 36.3; O2SAT 100; BMI 25.1
== END 2024-10-15 15:52 | disposition home or self-care (01) ==
PROVIDERS: PCP Physician Assistant Medical; Visit Provider Physician Assistant Medical
DX: M79.671 Pain in right foot (principal); Z00.00 Encounter for general adult medical examination without abnormal findings

== ENCOUNTER 2025-01-25 14:22 | Outpatient (AMB) | payer OTHER, SELFPAY ==
--- NOTE | 2025-01-25 14:59 | A.OFFPC_ITS ---
Vital Signs 01/25/25 15:01 Weight 166 lb 8 oz BP 108/84 Blood Pressure Location Lt brachial Position Sitting Respiration 12 Pulse 73 Pulse Source Pulse Oximeter Pulse Oximetry (%) 99 Oxygen Delivery Method Room Air Intake Visit Reasons: surgery 02/10 excision soft tissue mass right foot Intake Note: Pre op Marriage And Family Teacher Required: No Allergies fluoxetine [From Prozac] Allergy (Unknown, Verified 01/25/25 14:59) Hives Tobacco use date assessed: 01/25/25 Dental Screening Dental Screen Date: 01/25/25 Did you have a dental visit in the last 12 months?: Yes Did you have a dental problem in the last 6 months where you did not have access to dental care?: No Was dental information given to patient?: Patient has dentist HPI HPI Comments History of Present Illness Details 43-year-old female with a past medical h istory of abnormal uterine bleeding, anxiety, diastasis recti, NEHAL 1 and hypertension presents for a preoperative exam. She is scheduled to have a mass removed from her right foot on 02/10/[address] Croft. Hypertension is treated with propranolol ER 60 mg a day. This was also prescribed due to anxiety. Her blood pressure today is 108/84. She denies history of problems with anesthesia. She denies history of blood clots or clotting disorders in herself or her family. She denies signs or symptoms of recent infections. She denies history of cardiopulmonary disease. She is not diabetic. She does not smoke cigarettes. ROS: Constitutional: No unexplained weight loss, fever, chills, fatigue or night sweats. Eyes: No vision changes, blurry vision, double vision, eye pain, eye redness, eye discharge. ENT: No hearing loss, sneezing, congestion, runny nose or sore throat. Respiratory: No shortness of breath, cough or sputum production. Cardiovascular: No chest pain, chest pressure or chest discomfort. No pal pitations or pedal edema. Gastrointestinal: No anorexia, nausea, vomiting or diarrhea. No abdominal pain or blood in stool. Genitourinary: No dysuria, hematuria, urinary frequency. Neurologic: No headache, dizziness, syncope, unilateral weakness, ataxia, numbness or tingling in the extremities. Hematologic/Lymphatics: No bleeding or bruising. No painful lymph nodes. Skin: No rash Physical exam: Constitutional: Alert, in no distress. Head: Normocephalic. Eyes: Pupils are equal, round and reactive to light. Extraocular muscles intact. Ear, Nose and Throat: Canals clear. TMs normal. Normal nasal mucosa. No nasal discharge. No oral lesions. Neck: Supple, Full range of motion. No lymphadenopathy. No palpable thyroid masses. Respiratory: Clear to auscultation. Cardiovascular: S1 S2 regular. No murmurs. Gastrointestinal: Abdomen soft, non-tender, non-distended. Normal bowel sounds. No palpable masses. Neurologic: No focal neurological deficits. Skin: No rashes or lesions. Extremities: Warm and well perfused. No clubbing, cyanosis or edema. Intact peripheral pulses bilaterally. There is a lumpy, soft,large growth on the medial aspect of the right foot that extends from the back of the foot to the starting point of the arch. Psychiatric: Normal mood and affect [facility] Medical History (Updated 01/25/25 @ 15:03 by LIZZETH Harrell) Pre-op evaluation Routine physical examination Screening for cardiovascular condition Right foot pain Vulvodynia Menstrual headache Mass of right foot Hypertension History of pre-eclampsia Heavy menses Headache Hair loss Diastasis recti Anxiety Abnormal uterine bleeding Surgical History H/O wisdom tooth extraction H/O section Social History (Updated 08/31/24 @ 15:12 by Aide Sorensen CMA) Housing: House Alcohol intake: current Patient Tobacco Use Status: Never used Tobacco e-Cigarette/Vaping Use: Never Used Second Hand Smoke Exposure: No service: No Current occupational status: employed 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 Current occupational exposures/hazards: No Cognitive needs: No Hearing needs: No Vision needs: No Questionnaire Thrive Questionnaire Date Thrive assessed: 08/29/24 I am a: Patient What is your living situation today?: I have a steady place to live Within the past 12 months, did the food you bought not last and you didn't have the money to get more?: Never true Within the past 12 months, did you worry whether your food would run out before you got money to buy more?: Never true Do you have trouble paying for medicines?: No Do you have trouble getting transportation to medical appointments?: No Do you have trouble paying your heating and electricity bill?: No Do you have trouble taking care of your child, family member or friend?: No Do you have trouble with day-to-day activities such as bathing, preparing meals, shopping, managing finances, etc.?: No Are you currently unemployed and looking for a job?: No Are you interested in more education?: No Please select the resources that you would like help with: None Currently or been in a relationship where the following occur: No concerns reported THRIVE Score: 0 RICA-7 AMB Questionnaire RICA-7 Date RICA - 7 assessed: 10/15/24 Source: Developed by Drs. Mainor Ferraro, Ciara Stover, Thomas Morin and colleagues, with an educational ermelinda from [employer]. Physical exam (Primary Care) Vital Signs: Last Vital Signs Pulse 73 01/25/25 15:01 Resp 12 01/25/25 15:01 BP 108/84 01/25/25 15:01 Pulse Ox 99 01/25/25 15:01 Oxygen Delivery Method Room Air 01/25/25 15:01 Tobacco/Smoking Status: Tobacco use Status Tobacco use date assessed 01/25/25 01/25/25 15:00 Patient Tobacco Use Status Never used Tobacco 01/25/25 15:00 e-Cigarette/Vaping Use Never Used 01/25/25 15:00 Thrive Assessment: Date of Thrive Assessment Date Thrive assessed 08/29/24 01/25/25 15:00 Currently or been in a relationship where the following occur: No concerns reported Office Procedures EKG Details: EKG shows normal sinus rhythm and ventricular rate of 68 beats per minute. Reviewed by Dr. Perera. [id number], Complete Coding Level of Care Code Est Pt Level 4 (79411) Complex EM visit Add On G2211 Diagnoses Primary hypertension I10 Hypertension type: primary hypertension Mass of right foot R22.41 Pre-op evaluation Z01.818 CPT Codes EKG - CPT: 32743-[id number], Complete ([id number]) Assessment & Plan Assessment & Plan (1) Hypertension: Code(s): I10 - Essential (primary) hypertension Category: Medical Qualifiers: Hypertension type: primary hypertension Qualified Code(s): I10 - Essential (primary) hypertension (2) Mass of right foot: Code(s): R22.41 - Localized swelling, mass and lump, right lower limb Category: Medical (3) Pre-op evaluation: Code(s): Z01.818 - Encounter for other preprocedural examination Category: Medical Plan 44-year-old female with a past medical history of anxiety and hypertension presenting for preoperative exam. METS >10. She is at average risk for this procedure and can proceed pending her lab results. Advised patient to avoid NSAIDs for 7 days prior to the procedure. She does not take these regularly. Stop Minoxidil 1 week prior to surgery and resume 1 week following surgery. Continue beta vicky for hypertension. She can hold all other medications and vitamins the day of surgery and resume them the following day. Orders: Orders Complete Blood Count Auto Diff Today Z01.818 - Encounter for other preprocedural examination Basic Metabolic Panel Today Z01.818 - Encounter for other preprocedural examination AMB EKG-In Office Today I10 - Essential (primary) hypertension, R22.41 - Localized swelling, mass and lump, right lower limb, Z01.818 - Encounter for oth er preprocedural examination
[2025-01-25 15:01] VITALS: BP 108/84; PULSE 73; RESP 12; O2SAT 99
--- OUTSIDE RECORDS SUMMARY | 2025-01-25 16:19 | XMS_ITS | Patient Health Record ---
Author Organization [facility] Address [address] [address] Care Team Providers Care Flat Polisher Name Role Phone Carlie Vásquez Primary Care Provider ECTOR Nunez [phone] Allergies Allergen (clinical drug ingredient) Drug/Non Drug Allergy documented on EMR Reaction Allergy Type Onset Date Status fluoxetine Fluoxetine hives Drug Allergy Activ e Results Component Value Reference Range Notes MRI : Lower Ext Other Than J oint W/WO Reviewed date:11/23/2024 01:20:48 PM Interpretation: Performing Lab: Notes/Report: Reason For Referral No Information Medications Medication SIG (Take, Route, Fr equency, Duration) Notes Start Date End Date Status Minoxidil Active Propranolol HCl Acti ve Progesterone Active Problems Problem Type SNOMED Code ICD Code Onset Dates Problem Status W/U Status Risk Notes Problem [id number] Porokeratosis (Q82.8) Active confirmed Vital Signs Heart Rate 78 /min 11/02/2024 Temperature 97.4 degrees Fahrenheit 11/02/2024 Respiratory Rate 16 /min 11/02/2024 Height 5ft 8in in 11/02/2024 Weight 166.5 lbs 11/02/2024 BMI 25.31 kg/m2 11/02/2024 Encounters Encounter Location Date Provider Diagnosis [facility] [address] [address] 11/02/2024 ECTOR BOWIE Mass of soft tissue of foot M79.89 ; 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.2 ; Pain in right foot M79.671 and Porokeratosis Q82.8 [facility] [address] [address] 11/25/2024 ECTOR BOWIE [facility] [address] [address] 12/21/2024 ECTOR [facility] [address] [address] 12/21/2024 ECTOR [facility] [address] [address] 12/24/2024 ECTOR BOWIE [facility] [address] [address] 01/12/2025 ECTOR BOWIE Assessments Encounter Date Diagnosis (ICD Code) Assessment Notes Treatment Notes Treatment Clinical Notes Section Notes 11/02/2024 Mass of soft tissue of foot (ICD-10 - M79.89) This is an outpatient visit for evaluation and management of a new patient, which required appropriate review of pertinent medical history, review of any previous imaging, review of all previous records, and examination and complex decision-making. Time was 45 minutes spent in review of all these facets including face to face discussion with the patient regarding my findings and in discussion of a current and future treatment plan. This patient has a 20-year history of a soft tissue mass of the right heel. She did have imaging done approximately 10 years ago, indicating it was a fatty tumor in origin. At the time, surgery was recommended, but she never followed through due to life changes and lack of discomfort. The tumor has grown and has now become painful. Due to the size and new onset of pain, I am concerned about the tumor. I reviewed the x-ray results which do not show bony involvement. At this point I am considering surgical excision of the mass. I would like to order an MRI of the right foot for mapping of the mass, and potentially the type of mass. I will order the MRI of the right foot with contrast and contact the patient once I receive the results. I discussed with the patient that surgical excision for a mass this size will be a longer recovery. I briefly reviewed a post surgery course, but I did discuss with the patient, the surgical recovery may change depending on the MRI results. She is in agreement with this plan. 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 I aseptically debrided the porokeratosis with a #15 surgical blade, patient tolerated well. I explained how porokeratosis form. I recommended she apply moisturizer to the area daily. Plan Of Treatment Pending Test Test Name Order Date Electrocardiogram (EKG) 12/21/2024 X ray : Foot, right 3v 11/02/2024 BASIC METABOLIC PANEL 12/21/2024 CBC (COMPLETE BLOOD COUNT) 12/21/2024 Next Appt Details Provider Name:ECTOR BOWIE, 02/03/2025 04:00:00 PM, [address] [facility], [facility], [place], [address], Provider Name:ECOTR BOWIE, 02/10/2025 08:00:00 AM, [address] [place], [address], Provider Name:ECTOR BOWIE, 02/12/2025 03:00:00 PM, [address] , [facility], [place], [address], Provider Name:ECTOR BOWIE, 02/17/2025 01:30:00 PM, [address] , [facility], [place], [address], Provider Name:ECTOR BOWIE, 03/10/2025 04:00:00 PM, [address] , [facility], [place], [address], Insurance Providers Payer Name Payer Address Payer Phone Subscriber Number Group Number Insured Name Patient Relationship to Insured Coverage Start Date Coverage End Date [facility] [address] [place] [phone] [id number] Nannette Hamilton Self - patient is the insured Medical (General) History Medical History History ICD Code right foot pain vulvodynia menstrual headache mass of right foot hypertension history of pre- eclampsia heavy menses headache hair loss diastasis recti anxiety abnormal uterine bleeding COVID vaccinated Surgical History Surgery Date(Month/Year) wisdom tooth extraction section 2016 Hospitalization History Reason Date(Month/Year) vaginal 2019 section 2016
== END 2025-01-25 15:24 | disposition home or self-care (01) ==
LOC: HO.HMCFM 14:23
PROVIDERS: PCP Physician Assistant Medical; Visit Provider Physician Assistant Medical
DX: I10 Essential (primary) hypertension (principal); R22.41 Localized swelling, mass and lump, right lower limb; Z01.818 Encounter for other preprocedural examination

== ENCOUNTER → 2025-01-25 14:22 | Outpatient (BNVA) | payer OTHER, SELFPAY | PROVIDERS: PCP Physician Assistant Medical; Visit Provider Physician Assistant Medical | DX: Z01.818 Encounter for other preprocedural examination (principal); I10 Essential (primary) hypertension; R22.41 Localized swelling, mass and lump, right lower limb; F41.9 Anxiety disorder, unspecified; Z79.899 Other long term (current) drug therapy | CPT/HCPCS: 93005 ==

== ENCOUNTER 2025-01-25 15:43 | Outpatient (REF) | payer OTHER, SELFPAY ==
[2025-01-25 17:38] LABS: MANUAL DIFF FLAG NO
[2025-01-25 17:47] LABS: Basophils Absolute Auto 0.1 X10*3/uL (0.0-0.2); Eosinophils Absolute Auto 0.3 X10*3/uL (0.0-0.4); Eosinophils Percent Auto 4.7 % (0-4); Hematocrit 38.3 % (37.0-47.0); Hemoglobin 12.9 g/dl (12.0-16.0); Imm Gran Abs Auto 0.01 X10*3/uL (0.00-0.03); Imm Gran Pct Auto 0.2 % (0.0-0.4); Lymphocytes Absolute Auto 2.1 X10*3/uL (1.2-4.9); Mean Corpuscular HGB Conc 33.7 g/dl (31.0-35.0); Mean Corpuscular Hemoglobin 30.4 pg (27.0-33.0); Mean Corpuscular Volume 90.3 fL (80.0-98.0); Monocytes Absolute Auto 0.5 X10*3/uL (0.1-1.2); Neutrophils Absolute Auto 3.1 x10*3/uL (2.0-8.3); Neutrophils Percent Auto 51.1 % (45-73); Platelet Count 250 X10*3/uL (160-400); Red Blood Count 4.24 X10*6/uL (4.20-5.50); Red Cell Distribution Width 12.5 % (11.0-16.0); White Blood Count 6.1 X10*3/uL (4.8-10.8)
[2025-01-25 18:06] LABS: Anion Gap 11 (12-20); Blood Urea Nitrogen 18 mg/dL (9-16); Calcium 9.7 mg/dL (8.4-10.2); Carbon Dioxide 28 mmol/L (22-29); Chloride 105 mmol/L (96-108); Cholesterol 200 mg/dL (<200); Estimated Glomerular Filt Rate > 60; Glucose Random 111 mg/dL (60-115); HDL Cholesterol 52 mg/dL (>40); LDL Cholesterol Calculated 126 mg/dL (<100); Potassium 3.8 mmol/L (3.3-5.1); Sodium 140 mmol/L (135-145); Triglycerides 111 mg/dL (<150)
== END 2025-01-25 15:44 | disposition home or self-care (01) ==
LOC: HO.WFDLDS 15:43
PROVIDERS: Visit Provider Physician Assistant Medical
DX: Z01.818 Encounter for other preprocedural examination (principal); E78.5 Hyperlipidemia, unspecified
CPT/HCPCS: 36415; 80048; 80061; 85025

== ENCOUNTER 2025-04-12 15:09 | Outpatient (AMB) | payer OTHER, SELFPAY ==
--- NOTE | 2025-04-12 15:18 | MHC.PC.OV ---
Vital Signs 04/12/25 15:22 Height 5 ft 8 in Weight 164 lb 4 oz BMI 25.0 BP 110/64 Blood Pressure Location Rt brachial Position Sitting Respiration 12 Pulse 70 Pulse Source Pulse Oximeter Temp 97.5 F Temp Source Temporal Artery Scan Pulse Oximetry (%) 99 Oxygen Delivery Method Room Air Intake Visit Reasons: med review Intake Note: Nannette presents in the office today for a medication review. Allergies fluoxetine (From Prozac) Allergy (Unknown, Verified 04/12/25 15:20) Hives Medication List - Last Reconciled 04/12/25 by LIZZETH Harrell cholecalciferol (vitamin D3) . magnesium aspartate HCl . medroxyprogesterone 10 mg PO DAILY minoxidil 2.5 mg PO DAILY miscellaneous medical supply (Blood Pressure Cuff) As directed multivitamin 1 tab PO DAILY propranolol ER 60 mg PO DAILY Tobacco use date assessed: 04/12/25 Dental Screening Dental Screen Date: 04/12/25 Did you have a dental visit in the last 12 months?: Yes Did you have a dental problem in the last 6 months where you did not have access to dental care?: No Was dental information given to patient?: Patient has dentist HPI HPI Comments History of Present Illness Details 44-year-old female presents for follow up. She had a mass removed from her right foot on 02/10/[address] Croft. She has mild foot pain that is improving since then. She attributes this to learning how to walk on her heel when it is flat again. A skin lesion was removed during the surgery which came back precancerous. She has an exam set up at [facility] for a skin exam. Her father has a history of skin cancer. Hypertension is treated with propranolol ER 60 mg a day. It was also prescribed due to anxiety. Her blood pressure today is 110/64. Stressors have reduced. She notes that her 6-year-old son was recently diagnosed with central sleep apnea which may account for his behavioral struggles. He is going to see Neurology. She wants to try stopping the medication. She has a history of menstrual migraines, but she is on medroxyprogesterone which helps with this. She endorses pain in the front of her right mancini for the past month or so. She was on a scooter applying pressure to the right mancini following her foot surgery. It bothers her more when she kneels. No swelling or obvious trauma. ROS: Constitutional: No unexplained weight loss, fever, chills, fatigue or night sweats. Respiratory: No shortness of breath Cardiovascular: No chest pain Neurologic: No numbness or tingling Skin: No rash Physical exam: Constitutional: Alert, in no distress. Neck: Supple, Full range of motion. No lymphadenopathy Respiratory: Clear to auscultation. Cardiovascular: S1 S2 regular. No murmurs. Right leg: Point tenderness of the proximal right tibia. No palpable deformity or mass. No overlying skin changes or discoloration. Right knee: No crepitus, full range of motion, nontender to palpation. Negative Cj maneuver. [facility] Medical History (Updated 04/12/25 @ 17:11 by LIZZETH Harrell) Precancerous skin lesion Right leg pain Pre-op evaluation Routine physical examination Screening for cardiovascular condition Right foot pain Vulvodynia Menstrual headache Mass of right foot Hypertension History of pre-eclampsia Heavy menses Headache Hair loss Diastasis recti Anxiety Abnormal uterine bleeding Surgical History H/O wisdom tooth extraction H/O section Family History (Updated 04/12/25 @ 15:21 by Hillary Pisano MA) Father Substance abuse Alcoholism Social History (Updated 04/12/25 @ 15:22 by Hillary Pisano MA) Housing: House Alcohol intake: current Patient Tobacco Use Status: Never used Tobacco e-Cigarette/Vaping Use: Never Used Second Hand Smoke Exposure: No service: No Current occupational status: employed 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 Current occupational exposures/hazards: No Cognitive needs: No Hearing needs: No Vision needs: No Questionnaire Thrive Questionnaire Date Thrive assessed: 08/29/24 I am a: Patient What is your living situation today?: I have a steady place to live Within the past 12 months, did the food you bought not last and you didn't have the money to get more?: Never true Within the past 12 months, did you worry whether your food would run out before you got money to buy more?: Never true Do you have trouble paying for medicines?: No Do you have trouble getting transportation to medical appointments?: No Do you have trouble paying your heating and electricity bill?: No Do you have trouble taking care of your child, family member or friend?: No Do you have trouble with day-to-day activities such as bathing, preparing meals, shopping, managing finances, etc.?: No Are you currently unemployed and looking for a job?: No Are you interested in more education?: No Please select the resources that you would like help with: None Currently or been in a relationship where the following occur: No concerns reported THRIVE Score: 0 RICA-7 AMB Questionnaire RICA-7 Date RICA - 7 assessed: 10/15/24 Source: Developed by Drs. Mainor Ferraro, Ciara Stover, Thomas Morin and colleagues, with an educational ermelinda from [employer]. Physical exam (Primary Care) Vital Signs: Last Vital Signs Temp 97.5 F 04/12/25 15:22 Pulse 70 04/12/25 15:22 Resp 12 04/12/25 15:22 BP 110/64 04/12/25 15:22 Pulse Ox 99 04/12/25 15:22 Oxygen Delivery Method Room Air 04/12/25 15:22 BMI result Body Mass Index 25.0 Tobacco/Smoking Status: Tobacco use Status Tobacco use date assessed 04/12/25 04/12/25 15:25 Patient Tobacco Use Status Never used Tobacco 04/12/25 15:22 e-Cigarette/Vaping Use Never Used 04/12/25 15:22 Thrive Assessment: Date of Thrive Assessment Date Thrive assessed 08/29/24 04/12/25 15:19 Currently or been in a relationship where the following occur: No concerns reported Coding Level of Care Code Est Pt Level 4 (91844) Complex EM visit Add On G2211 Diagnoses Anxiety F41.9 Primary hypertension I10 Hypertension type: primary hypertension Right leg pain M79.604 Precancerous skin lesion L98.9 Assessment & Plan Assessment & Plan (1) Anxiety: Code(s): F41.9 - Anxiety disorder, unspecified Category: Medical Plan: Stable. She has seen a therapist. Monitor symptoms. (2) Hypertension: Code(s): I10 - Essential (primary) hypertension Category: Medical Qualifiers: Hypertension type: primary hypertension Qualified Code(s): I10 - Essential (primary) hypertension Plan: She wants to try stopping propranolol. She will discontinue the medication and follow up in 6 weeks for a recheck. Advised patient that if anxiety increases or menstrual migraines return she can restart propranolol ER 60 mg daily. (3) Right leg pain: Code(s): M79.604 - Pain in right leg Category: Medical Plan: This may be secondary to applying pressure to this area on the scooter that she used following foot surgery. She was on it for an entire month. She will try to rest it and apply ice. I will check an x-ray. If pain persists we will proceed with MRI. Recheck 6 weeks. (4) Precancerous skin lesion: Code(s): L98.9 - Disorder of the skin and subcutaneous tissue, unspecified Category: Medical Plan: Skin exam scheduled with [facility]. Plan Follow up in 6 weeks. Orders: Orders XR tibia fibula RT 2V Today M79.604 - Pain in right leg
[2025-04-12 15:22] VITALS: BP 110/64; PULSE 70; RESP 12; TEMP 36.4; O2SAT 99; BMI 25.0
--- OUTSIDE RECORDS SUMMARY | 2025-04-12 16:49 | XMS_ITS | Patient Health Record ---
Author Organization [facility] Address [address] [facility] [address] [place] [address] Care Team Providers Care Pin Puller Name Role Phone ThaliaCarlie luna Primary Care Provider ECTOR Nunez Unavailable [phone] Allergies Allergen (clinical drug ingredient) Drug/Non Drug Allergy documented on EMR Reaction Allergy Type Onset Date Status fluoxetine Fluoxetine hives Drug Allergy Activ e Results Component Value Reference Range Notes MRI : Lower Ext Other Than J oint W/WO Reviewed date:11/23/2024 01:20:48 PM Interpretation: Performing Lab: Notes/Report: Reason For Referral No Information Medications Medication SIG (Take, Route, Frequency, Duration) Notes Start Date End Date Status Multivitamin - 1 tablet Orally Once a day Active Pumpkin Seed Oil - as directed Orally Active Probiotic Active Ondansetron HCl 4 MG 1 tablet Orally 3 times a day; Duration: 7 days for post op nausea 02/03/2025 Not-Taking Vitamin D Active traMADol HCl 50 MG 1 tablet as needed Orally every 6 hours; Duration: 5 days 02/03/2025 Not-Taking Acetaminophen 500 MG 1 tablet as needed Orally every 6 hrs; Duration: 30 days 02/03/2025 Not-Taking Ibuprofen 600 MG 1 tablet with food o r milk as needed Orally 4 times a day; Duration: 30 days 02/03/2025 Not-Taking Propranolol HCl Acti ve Amoxicillin-Pot Clavulanate 500-125 MG 1 tablet Orally every 12 hrs; Duration: 7 days 03/04/2025 Not-Taking Minoxidil Active Progesterone Active Problems Problem Type SNOMED Code ICD Code Onset Dates Problem Status W/U Status Risk Notes Problem Porokeratosis (754404059) Porokeratosis (Q82.8) Active confirmed Vital Signs Heart Rate 80 /min 03/31/2025 Temperature 97.5 degrees Fahrenheit 03/31/2025 Respiratory Rate 16 /min 03/31/2025 Height 5ft 8in in 03/31/2025 Weight 166.7 lbs 03/31/2025 BMI 25.34 kg/m2 03/31/2025 Encounters Encounter Location Date Provider Diagnosis [facility] [address] [place] [id number] 02/10/2025 ECTOR BOWIE [facility] [address] [address] 11/02/2024 ECTOR BOWIE Mass of soft tissue of foot M79.89 ; 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.2 ; Pain in right foot M79.671 and Porokeratosis Q82.8 [facility] [address] [address] 02/03/2025 ECTOR BOWIE Mass of soft tissue of foot M79.89 ; 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.2 ; Pain in right foot M79.671 and Porokeratosis Q82.8 [facility] [address] [address] 02/12/2025 ECTOR BOWIE 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.2 ; Mass of soft tissue of foot M79.89 and Pain in right foot M79.671 [facility] [address] [address] 02/17/2025 ECTOR BOWIE 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.2 ; Mass of soft tissue of foot M79.89 and Pain in right foot M79.671 [facility] [address] [address] 02/24/2025 ECTOR BOWIE 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.2 ; Mass of soft tissue of foot M79.89 ; Pain in right foot M79.671 and Precancerous lesion D49.9 [facility] [address] [address] 03/10/2025 ECTOR BOWIE 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.2 ; Mass of soft tissue of foot M79.89 ; Pain in right foot M79.671 ; Precancerous lesion D49.9 and Dehiscence of operative wound, initial encounter T81.31XA [facility] [address] 03/31/2025 ECTOR BOWIE 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.2 ; Mass of soft tissue of foot M79.89 ; Pain in right foot M79.671 ; Precancerous lesion D49.9 and Dehiscence of operative wound, initial encounter T81.31XA [facility] [address] 11/25/2024 ECTOR BOWIE [facility] [address] 12/21/2024 ECTOR BOWIE [facility] [address] 12/21/2024 ECTOR BOWIE [facility] [address] 12/24/2024 ECTOR BOWIE [facility] [address] 01/12/2025 ECTOR BOWIE [facility] [address] 02/04/2025 ECTOR BOWIE [facility] [address] 02/08/2025 ECTOR BOWIE [facility] [address] 02/22/2025 ECTOR BOWIE [facility] [address] 03/04/2025 ECTOR BOWIE [facility] [address] 03/31/2025 ECTOR BOWIE Assessments Encounter Date Diagnosis (ICD [...] tumor of right foot (ICD-10 - D49.2) 02/03/2025 Mass of soft tissue of foot (ICD-10 - M79.89) I. Surgical Procedure Details: The nature of the patients condition was discussed at length. Discussed with patient details of procedure(s), possible risks and complications, alternative treatment options and post-operative course detailed below. Patient is aware that surgery is elective and can be avoided if desired. Likely surgical procedures include excision of soft tissue mass right foot with core biopsy of the mass. II. Risk & Possible Complications: Patient educated today about risks associated with surgery. Risks of surgery include, but are not limited to: infection, painful scar, nerve injury, numbness, stiffness, over-correction, under-correction, need for repeat surgery, recurrence of condition, ongoing pain, delayed wound healing, blood clot in the legs or lungs, amputation or other unforeseen side effects from undergoing surgery. After detailed discussed patient wishes to continue with surgical intervention. Informed consent for surgery will be done on the day of the procedure. III. Postoperative Weightbearing Status: Patient understands that they would need to remain complete NWB for 2-4 weeks followed by 4 weeks of progressive WB. Patient will utilize knee scooter, crutches, CAM boot and posterior splint post-operatively. She will be in a posterior splint for the first two weeks followed by the walking boot. RX given today for DME of crutches, knee scooter, and walker. She was encouraged to contact the office if she wishes to rent a knee scooter. IV. Work & Activity Restrictions During Recovery: The recovery process was discussed including impact to work, walking, shoes and daily activities. Anticipated time off work: 8 weeks. FMLA paperwork completed for the patient. Discussed that they should anticipate up to 12 months for maximum recovery after surgery. V. VTE Risk Assessment and Need for Prophylaxis: Risks of DVT/PE were discussed in relation to anticipated level of immobilization, inactivity, injury, surgery, medications and personal risk factors. Perioperative education was provided regarding signs and symptoms of a blood clot. The patient was encouraged to be vigilant regarding symptoms and pursue risk reduction measures. Based on patient history, procedure and post-operative plan, risk outweighs benefit of chemical prophylaxis, therefore mechanical prophylaxis was encourages as patient will be in a removable boot postoperatively. Lower extremity range of motion exercises are encouraged. . Pain Management Plan: Postoperative pain regimens were discussed in great detail the patient. She will be receiving a popliteal/saphenous nerve block. The risks and benefits of non-narcotic and narcotic pain medications, as well as synergistic agents was also discussed. The patient will be prescribed Tramadol for more severe breakthrough pain not relieved by scheduled Tylenol, ibuprofen, Zofran. The patient was also encouraged to rest, elevate and ice postoperatively to help with swelling and pain control. The patient was in agreement with this plan. VII. Preoperative Nursing Education: Post op footwear was discussed with the patient. She was provided with written pre- and post-op education following verbal teaching in clinic today. She is aware of the surgery date. Patient goals for visit today: education, answer questions and FMLA form completed. Preop education: podiatry team members, night before and day of procedures, activity restrictions next 6 to 10 weeks, weight on foot restrictions, ice and elevation education, bandage care until sutures/pins removed, bathing restrictions/option s, pain control-narcotic and non-narcotic, prevention of constipation and DVT education. 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 She has no signs of infection on clinical exam today. I reviewed the x-images taken intraoperatively with the patient. She has no pain on examination today. We discussed increased bleeding and drainage expected due to the size of the mass. I pulled the iodoform packing today, measuring approximately 3inches. We discussed she will still have some drainage, but there is no evidence of a hematoma on examination today. I changed the right foot bandage, Telfa and a dry sterile dressing applied. The 4-inch posterior splint was then re-applied to the left foot with Webril and tyler wraps. She can ice behind the knee if needed. We discussed she should ice three times a day and continue to elevate the foot. Continue no weight to the right foot with the posterior splint and crutches or a knee scooter. Patient instructed to continue taking the Tylenol and ibuprofen as written for the next 24 hours. She can continue to take ibuprofen and Tylenol as needed for pain after that. She will follow back in 1 week for another bandage change, and in 2 weeks for a suture removal. We discussed the amount of bleeding on the bandage is expected and that is why we have this appointment to change the bandage. We discussed icing and elevation of the right foot is important, especially until her next visit. We discussed using a cast bag for showering, and no driving for now. Patient is to take the Tylenol as prescribed. I will see her back in 5 days for a bandage change. Patient encouraged to contact the office with any questions or concerns. 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 There was minimal drainage following the drain/packing pull last visit. The incision site is dry and well coapted, and the 1cm area that was left open due to the packing is granulating in well. She has no pain on examination today. There is no evidence of a hematoma on examination today. I changed the right foot bandage, Telfa and a dry sterile dressing applied with an tyler wrap. I did not reapply the splint. She was fitted and a large short leg pneumatic walking boot dispensed in the office today. She can now ice the foot as needed for pain and well. Continue no weight to the right foot with the walking boot and crutches or a knee scooter. She can remove the boot when sitting or lying down. I told the patient she can toe touch only when in the walking boot. She can continue to take ibuprofen and Tylenol as needed for pain. She will follow back in 1 week for a suture removal. We discussed icing and elevation of the right foot is important, especially until her next visit. We discussed using a cast bag for showering, and no driving for now. We discussed suture removal next visit and allowing showering if incision site is healed. We discussed partial weight in the boot next visit if incision site is healed. The pathology results of the mass are not back yet, but I will contact the patient once I receive the results. Patient encouraged to contact the office with any questions or concerns. 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 She has no signs of infection on clinical exam today. There was no drainage on the bandages today. The incision site is dry and well coapted, except for 0.5cm area central incision there was slight dehiscence once the scabbing was washed away. She has no pain on examination today. There is no evidence of a hematoma on examination today. No signs of infection today. We discussed icing and elevation of the right foot at night is important, especially until her next visit. The incision site was cleansed with a chlorhexidine wash. Using sterile forceps and a #15 blade, the sutures were removed. The patient tolerated this well and 1/4 inch steri strips were applied across the incision site. A small dry dressing and tyler wrap was applied which she can remove as necessary. Starting tomorrow she can get the foot wet and shower normally. She is to avoid soaking the foot for 1-2 weeks. I recommended she continue to apply a small dry dressing to the incision site daily for the next 5-7 days or until there is no drainage from the area of dehiscence. No driving for now. Patient is to take the Tylenol, ibuprofen as needed. She can start partial weight-bearing to the right foot with the walking boot and crutches. We discussed no consistent weight over 10-15 minutes at a time to the right foot. I would like her to continue this restriction until her next visit. We will evaluate and see if she is ready to progress into a sandal, and if she is cleared to drive. She is in agreement with this plan. I encouraged her to contact my office with any questions or concerns before her next appointment. 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 She has no signs of infection on clinical exam today. There was no drainage on the bandage today. The incision site is dry and well coapted, except for 0.5cm area central incision there was slight dehiscence once the scabbing was washed away. She has no pain on examination today. There is no evidence of a hematoma on examination today. I recommended she continue to keep the area of dehiscence covered until fully scabbed and the drainage stops. She does not need another course of antibiotics. She can leave the area open to the air at night. We discussed icing and elevation of the right foot at night is important, especially until her next visit. She is to avoid soaking the foot for 1-2 weeks. I recommended she continue to apply a small dry dressing to the incision site daily for the next 5-7 days or until there is no drainage from the area of dehiscence. She is to wait another 2 weeks before applying lotion or cream to the incision site. We discussed the scabbing along the incision should fall off on its own. Patient is to take the Tylenol, ibuprofen as needed. She can continue partial weight-bearing to the right foot and start to transition out of the walking boot. We discussed she can split her time for the first week between a sandal and a walking boot. We discussed no consistent weight over 30 minutes at a time to the right foot. She can drive short distances without the walking boot. I would like her to continue this restriction until her next visit. I reviewed stretching exercises for the right foot, handout dispensed. I would like her to complete these daily until her next visit. We discussed some rebound swelling is normal. We discussed if she has trouble with her gait at the next visit, I will refer her to gait training therapy. We discussed deciding her official return to work date at her next appointment in 2-3 weeks. She is in agreement with this plan. 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 She has no signs of infection on clinical exam today. . The incision site is dry and well coapted. I recommended she wait and let the scab fall off on its own. She has no pain on examination today. There is no evidence of a hematoma on examination today. We discussed icing and elevation of the right foot at night is important, especially until her next visit. She can start applying lotion or cream to the incision site. We discussed the scabbing along the incision should fall off on its own. Patient is to take the Tylenol, ibuprofen as needed. She can transition to full weight-bearing to the right foot and start to transition into closed toed shoes. We discussed she can split her time for the first week between a sandal and a sneaker. We discussed no consistent weight over 2 hours at a time to the right foot. I reviewed stretching exercises for the right foot, handout dispensed. I would like her to complete these daily until her next visit. We discussed some rebound swelling is normal. We discussed if she still has trouble with her gait at the next visit, I will refer her to gait training therapy. Paperwork completed for the patient to return to work in 2 weeks on April 13. She will contact the office if this changes. She is in agreement with this plan. 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 I aseptically debrided the porokeratosis with a #15 surgical blade, patient tolerated well. I explained how porokeratosis form. I recommended she apply moisturizer to the area daily. 02/17/2025 Pain in right foot (ICD-10 - M79.671) 02/24/2025 Pain in right foot (ICD-10 - M79.671) 03/10/2025 Pain in right foot (ICD-10 - M79.671) 03/31/2025 Pain in right foot (ICD-10 - M79.671) 03/10/2025 Precancerous lesion (ICD-10 - D49.9) I reviewed the pathology results from the surgery. We discussed the soft tissue mass was a lipoma. We discussed I resected a nervus near the mass at the time of the skin flap. This was also sent to pathology. The cells showed moderate to severe atypia, consistent with a pre-cancerous lesion. I wrote a letter and forwarded the results to her community outreach advocate and PCP care team. I recommended yearly skin checks for this patient. 02/24/2025 Precancerous lesion (ICD-10 - D49.9) I reviewed the pathology results from the surgery. We discussed the soft tissue mass was a lipoma. We discussed I resected a nervus near the mass at the time of the skin flap. This was also sent to pathology. The cells showed moderate to severe atypia, consistent with a pre-cancerous lesion. I wrote a letter and forwarded the results to her community outreach advocate and PCP care team. I recommended yearly skin checks for this patient. 03/31/2025 Precancerous lesion (ICD-10 - D49.9) I reviewed the pathology results from the surgery. We discussed the soft tissue mass was a lipoma. We discussed I resected a nervus near the mass at the time of the skin flap. This was also sent to pathology. The cells showed moderate to severe atypia, consistent with a pre-cancerous lesion. I wrote a letter and forwarded the results to her community outreach advocate and PCP care team. I recommended yearly skin checks for this patient. 02/03/2025 Porokeratosis (ICD-10 - Q82.8) 03/31/2025 Dehiscence of operative wound, initial encounter (ICD-10 - T81.31XA) 03/10/2025 Dehiscence of operative wound, initial encounter (ICD-10 - T81.31XA) Plan Of Treatment Pending Test Test Name Order Date Electrocardiogram (EKG) 12/21/2024 X ray : Foot, right 3v 11/02/2024 BASIC METABOLIC PANEL 12/21/2024 CBC (COMPLETE BLOOD COUNT) 12/21/2024 Next Appt Details Provider Name:ECTOR BOWIE, 05/07/2025 01:30:00 PM, [address] [facility] [address], [place], [address], Insurance Providers Payer Name Payer Address Payer Phone Subscriber Number Group Number Insured Name Patient Relationship to Insured Coverage Start Date Coverage End Date [facility] [address] [facility] [address] [place] [address] [phone] [id number] Nannette Hamilton Self - patient is the [...]
== END 2025-04-12 15:58 | disposition home or self-care (01) ==
LOC: HO.HMCFM 15:10
PROVIDERS: PCP Physician Assistant Medical; Visit Provider Physician Assistant Medical
DX: F41.9 Anxiety disorder, unspecified (principal); I10 Essential (primary) hypertension; M79.604 Pain in right leg; L98.9 Disorder of the skin and subcutaneous tissue, unspecified

== ENCOUNTER 2025-04-22 11:25 | Outpatient (REF) | payer OTHER, SELFPAY ==
--- NOTE | ~2025-04-22 | XR_ITS ---
EXAMINATION: XR TIBIA AND FIBULA, RIGHT CLINICAL INFORMATION: M79.604 - Pain in right leg COMPARISON: None available. TECHNIQUE: AP and lateral views of the right tibia and fibula were obtained. FINDINGS: The bones and soft tissues are normal. No fracture or evidence of stress fracture. No periostitis. No bone lesion. Imaged joints appear normal. XR/XR tibia fibula RT 2V IMPRESSION: Normal right tibia and fibula. Electronically signed by: Dwight Blanchard MD 04/22/2025 01:24 PM EDT
--- OUTSIDE RECORDS SUMMARY | 2025-04-22 13:07 | XMS_ITS | Patient Health Record ---
Author Organization [facility] Address [address] [facility] [address] [place] [address] Care Team Providers Care Card Scraper Name Role Phone ThaliaCarlie luna Primary Care Provider ECTOR Nunez Unavailable [phone] Allergies Allergen (clinical drug ingredient) Drug/Non Drug [...] Status W/U Status Risk Notes Problem Porokeratosis (097383409) Porokeratosis (Q82.8) Active confirmed Vital Signs Heart Rate 80 /min 03/31/2025 Temperature 97.5 degrees Fahrenheit 03/31/2025 Respiratory Rate 16 /min 03/31/2025 Height 5ft 8in in 03/31/2025 Weight 166.7 lbs 03/31/2025 BMI 25.34 kg/m2 03/31/2025 Encounters Encounter Location Date Provider Diagnosis [facility] [address] [place] [id number] 02/10/2025 ECTOR BOWIE [facility] [address] [address] 11/02/2024 ECTOR BOWIE Mass of soft tissue of foot M79.89 ; 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.2 ; Pain in right foot M79.671 and Porokeratosis Q82.8 [facility] [address] [address] 02/03/2025 ECTOR BOWIE Mass of soft tissue of foot M79.89 ; 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.2 ; Pain in right foot M79.671 and Porokeratosis Q82.8 [facility] [address] [address] 02/12/2025 ECTOR BOWIE 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.2 ; Mass of soft tissue of foot M79.89 and Pain in right foot M79.671 [facility] [address] [address] 02/17/2025 ECTOR BOWIE 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.2 ; Mass of soft tissue of foot M79.89 and Pain in right foot M79.671 [facility] [address] [address] 02/24/2025 ECTOR BOWIE 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.2 ; Mass of soft tissue of foot M79.89 ; Pain in right foot M79.671 and Precancerous lesion D49.9 [facility] [address] [address] 03/10/2025 ECTOR BOWIE 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.2 ; Mass of soft tissue of foot M79.89 ; Pain in right foot M79.671 ; Precancerous lesion D49.9 and Dehiscence of operative wound, initial encounter T81.31XA [facility] [address] 03/31/2025 ECTOR BOWIE 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.2 ; Mass of soft tissue of foot M79.89 ; Pain in right foot M79.671 ; Precancerous lesion D49.9 and Dehiscence of operative wound, initial encounter T81.31XA [facility] [address] 11/25/2024 ECTOR BOWIE [facility] [address] 12/21/2024 ECTOR BOWIE [facility] [address] 12/21/2024 ECTOR BOWIE [facility] [address] 12/24/2024 ECTOR BOWIE [facility] [address] 01/12/2025 ECTOR BOWIE [facility] [address] 02/04/2025 ECTOR BOWIE [facility] [address] 02/08/2025 ECTOR BOWIE [facility] [address] 02/22/2025 ECTOR BOWIE [facility] [address] 03/04/2025 ECTOR BOWIE [facility] [address] 03/31/2025 ECTOR BOWIE Assessments Encounter Date [...] letter and forwarded the results to her weekend anchor and PCP care team. I recommended yearly [...] letter and forwarded the results to her weekend anchor and PCP care team. I recommended yearly [...] letter and forwarded the results to her weekend anchor and PCP care team. I recommended yearly [...] Name:ECTOR BOWIE, 05/07/2025 01:30:00 PM, [address] [facility] [address], [place], [address], Insurance Providers Payer Name Payer Address Payer Phone Subscriber Number Group Number Insured Name Patient Relationship to Insured Coverage Start Date Coverage End Date [facility] [address] [facility] [address] [place] [phone] [id number] Nannette Hamilton Self - patient is the [...]
== END 2025-04-22 11:26 | disposition home or self-care (01) ==
LOC: HO.HHCX 11:25
PROVIDERS: PCP Physician Assistant Medical; Visit Provider Physician Assistant Medical
DX: M79.604 Pain in right leg (principal)
CPT/HCPCS: 73590

== ENCOUNTER → 2025-04-22 11:51 | Outpatient (BNV) | payer OTHER, SELFPAY | PROVIDERS: PCP Physician Assistant Medical; Visit Provider Radiology Diagnostic Radiology | DX: M79.604 Pain in right leg (principal) | CPT/HCPCS: 73590 ==

== ENCOUNTER 2025-06-03 14:22 | Outpatient (AMB) | payer OTHER, SELFPAY ==
--- NOTE | 2025-06-03 14:25 | A.OFFPC_ITS ---
Vital Signs 06/03/25 14:28 Height 5 ft 8 in Weight 165 lb 3 oz BMI 25.1 BP 110/62 Blood Pressure Location Rt brachial Position Sitting Respiration 13 Pulse 86 Pulse Source Pulse Oximeter Temp 97.3 F Temp Source Temporal Artery Scan Pulse Oximetry (%) 98 Oxygen Delivery Method Room Air Intake Visit Reasons: BP follow up Intake Note: Nannette presents in the office today for a BP follow up Allergies fluoxetine (From Prozac) Allergy (Unknown, Verified 06/03/25 14:27) Hives Tobacco use date assessed: 06/03/25 Dental Screening Dental Screen Date: 06/03/25 Did you have a dental visit in the last 12 months?: Yes Did you have a dental problem in the last 6 months where you did not have access to dental care?: No Was dental information given to patient?: Patient has dentist HPI HPI Comments History of Present Illness Details 45-year-old female presents for follow u p. She had a mass removed from her right foot on 02/10/[address] Croft. A skin lesion was removed during the surgery which came back precancerous. She has an exam set up at [facility] for a skin exam. Her father has a history of skin cancer. She attempted to discontinue propranolol but she had increased anxiety, flushing. This was also being used to treat hypertension which has been well- controlled. She restarted it, and she is feeling better. She reports exacerbation of ongoing stressors home. Her relapsed with alcohol, and he has been diagnosed with cirrhosis and needs a liver transplant. They have 2 children together. She is seeing a therapist. Her [id number] has been supportive. She endorsed pain in the front of her right mancini for a month at her last appointment. She has been using a scooter applying pressure to the right manciin following her foot surgery. This is now improving. Her x-ray was negative. Denies swelling, weakness, discoloration. ROS: Constitutional: No unexplained weight loss, fever, chills, fatigue or night sweats. Respiratory: No shortness of breath Cardiovascular: No chest pain Neurologic: No numbness or tingling Physical exam: Constitutional: Alert, in no distress. Neck: Supple, Full range of motion. No lymphadenopathy Respiratory: Clear to auscultation. Cardiovascular: S1 S2 regular. No murmurs. Psychiatric: Cooperative, organized thoughts, maintains good eye contact [facility] Medical History (Updated 04/12/25 @ 17:11 by LIZZETH Harrell) Precancerous skin lesion Right leg pain Pre-op evaluation Routine physical examination Screening for cardiovascular condition Right foot pain Vulvodynia Menstrual headache Mass of right foot Hypertension History of pre-eclampsia Heavy menses Headache Hair loss Diastasis recti Anxiety Abnormal uterine bleeding Surgical History H/O wisdom tooth extraction H/O section Family History Father Substance abuse Alcoholism Social History (Updated 06/03/25 @ 14:28 by Hillary Pisano CMA) Housing: House Alcohol intake: current Patient Tobacco Use Status: Never used Tobacco e-Cigarette/Vaping Use: Never Used Second Hand Smoke Exposure: No Use of substances other than those prescribed or required for medical reasons: No service: No Current occupational status: employed 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 Current occupational exposures/hazards: No Cognitive needs: No Hearing needs: No Vision needs: No Questionnaire Thrive Questionnaire Date Thrive assessed: 08/29/24 I am a: Patient What is your living situation today?: I have a steady place to live Within the past 12 months, did the food you bought not last and you didn't have the money to get more?: Never true Within the past 12 months, did you worry whether your food would run out before you got money to buy more?: Never true Do you have trouble paying for medicines?: No Do you have trouble getting transportation to medical appointments?: No Do you have trouble paying your heating and electricity bill?: No Do you have trouble taking care of your child, family member or friend?: No Do you have trouble with day-to-day activities such as bathing, preparing meals, shopping, managing finances, etc.?: No Are you currently unemployed and looking for a job?: No Are you interested in more education?: No Please select the resources that you would like help with: None Currently or been in a relationship where the following occur: No concerns reported THRIVE Score: 0 RICA-7 AMB Questionnaire RICA-7 Date RICA - 7 assessed: 10/15/24 Source: Developed by Drs. Mainor Ferraro, Ciara Stover, Thomas Morin and colleagues, with an educational ermelinda from [employer]. Physical exam (Primary Care) Vital Signs: Last Vital Signs Temp 97.3 F 06/03/25 14:28 Pulse 86 06/03/25 14:28 Resp 13 06/03/25 14:28 BP 110/62 06/03/25 14:28 Pulse Ox 98 06/03/25 14:28 Oxygen Delivery Method Room Air 06/03/25 14:28 BMI result Body Mass Index 25.1 Tobacco/Smoking Status: Tobacco use Status Tobacco use date assessed 06/03/25 06/03/25 14:30 Patient Tobacco Use Status Never used Tobacco 06/03/25 14:28 e-Cigarette/Vaping Use Never Used 06/03/25 14:28 Thrive Assessment: Date of Thrive Assessment Date Thrive assessed 08/29/24 06/03/25 14:26 Currently or been in a relationship where the following occur: No concerns reported Coding Level of Care Code Est Pt Level 4 (27839) Complex EM visit Add On G2211 Diagnoses Anxiety F41.9 Primary hypertension I10 Hypertension type: primary hypertension Right leg pain M79.604 Precancerous skin lesion L98.9 Assessment & Plan Assessment & Plan (1) Anxiety: Code(s): F41.9 - Anxiety disorder, unspecified Category: Medical Plan: Patient has a lot of stress at home, and she is seeing a therapist. I provided emotional support today to the patient and we discussed the situation with her . Her cousin runs the liver transplant services at [facility], and they are seeking a referral from Gastroenterology. She resumed propranolol which helps with anxiety symptoms. She had an allergic reaction to an SSRI in the past. She is not interested in other medications for anxiety at this time. (2) Hypertension: Code(s): I10 - Essential (primary) hypertension Category: Medical Qualifiers: Hypertension type: primary hypertension Qualified Code(s): I10 - Essential (primary) hypertension Plan: Well-controlled. Continue propranolol. (3) Right leg pain: Code(s): M79.604 - Pain in right leg Category: Medical Plan: This was likely due to o applying pressure to this area on the scooter that she used following foot surgery. X-ray was negative. Pain is improving. If she does not have resolution over the next 4-6 weeks she will let me know or if symptoms worsen we will proceed with MRI. (4) Precancerous skin lesion: Code(s): L98.9 - Disorder of the skin and subcutaneous tissue, unspecified Category: Medical Plan: Skin exam scheduled with [facility]. Plan Physical is scheduled in October 2025. She will follow up sooner as needed.
[2025-06-03 14:28] VITALS: BP 110/62; PULSE 86; RESP 13; TEMP 36.3; O2SAT 98; BMI 25.1
== END 2025-06-03 15:14 | disposition home or self-care (01) ==
LOC: HO.HMCFM 14:23
PROVIDERS: PCP Physician Assistant Medical; Visit Provider Physician Assistant Medical
DX: F41.9 Anxiety disorder, unspecified (principal); I10 Essential (primary) hypertension; M79.604 Pain in right leg; L98.9 Disorder of the skin and subcutaneous tissue, unspecified